=== PATIENT | female | born 1955 | race Caucasian/White ===

== ENCOUNTER 2017-09-30 07:15 | Emergency (ER) | payer MEDICAID, OTHER ==
[~2017-09-30] VITALS: Ht 162.6 cm; Wt 104.3 kg
[2017-09-30 07:15] VITALS: BP_SYST 141
--- NOTE | 2017-09-30 07:16 | NUR ---
Placed in room 8. Placed on site monitor, blood pressure machine and pulse oximeter. To gown for exam. Side rails up. Report given to Mp KOENIG.
--- NOTE | 2017-09-30 07:21 | NUR ---
Pt presenTs to Ed c/o episode of palpitations at approx 0100 this AM. Pt has no acute distress noted.Pt h/o HTN. VSS. Pt denies CP or SOB at this time.
--- NOTE | 2017-09-30 07:25 | NUR ---
ER at bedside examining patient.
--- NOTE | 2017-09-30 07:45 | NUR ---
delivery technician at bedside.
[2017-09-30 08:09] LABS: BASOPHILS # (AUTO) 0.1 K/uL (0.0-0.2); EOSINOPHILS # (AUTO) 0.1 K/uL (0.0-0.4); HEMATOCRIT 43.2 % (36-48); HEMOGLOBIN 14.4 g/dL (12.0-16.0); LYMPHOCYTES # (AUTO) 1.9 K/uL (1.0-5.5); LYMPHOCYTES % (AUTO) 33.6 % (20.5-51.5); MEAN CORPUSCULAR HEMOGLOBIN 29 pg (27-31); MEAN CORPUSCULAR HGB CONC 34 % (32-36); MEAN CORPUSCULAR VOLUME 87 fL (79.0-98.0); MONOCYTES # (AUTO) 0.4 K/uL (0.0-1.0); MONOCYTES % (AUTO) 7.2 % (1.7-9.3); NEUTROPHILS # (AUTO) 3.3 K/uL (1.8-7.7); NEUTROPHILS % (AUTO) 56.2 % (40.0-70.0); PLATELET COUNT (AUTO) 259 K/uL (130-430); RED BLOOD CELL COUNT(AUTO) 4.96 MIL/uL (4.2-6.2); RED CELL DISTRIBUTION WIDTH 12.9 % (9.0-15.0); WHITE BLOOD COUNT (AUTO) 5.8 K/uL (4.8-10.8)
--- NOTE | 2017-09-30 08:15 | NUR ---
Pt resting no acute distress noted.
[2017-09-30 08:30] LABS: CALCIUM 8.7 mg/dL (8.4-11.0); CREATININE 0.74 mg/dL (0.55-1.30); POTASSIUM 4.1 mmol/L (3.5-5.1)
[2017-09-30 08:35] LABS: ALBUMIN 3.5 g/dL (3.4-4.8); TOTAL BILIRUBIN 0.4 mg/dL (0.0-1.0)
[2017-09-30 09:12] VITALS: BP_SYST 131
--- NOTE | 2017-09-30 09:12 | NUR ---
Patient given written and verbal discharge instructions and verbalizes understanding. ER MD discussed with patient the results and treatment provided. Patient in stable condition. ID arm band removed. IV catheter removed intact and dressing applied, no active bleeding. No Rx given. Patient educated on pain management and to follow up with PMD. Pain Scale 0. Opportunity for questions provided and answered. Medication side effect fact sheet provided.
== END 2017-09-30 09:12 | disposition home or self-care (01) ==
LOC: SED 07:15
DX: R07.89 Other chest pain (principal); I10 Essential (primary) hypertension; Z88.2 Allergy status to sulfonamides; Z86.79 Personal history of other diseases of the circulatory system
CPT/HCPCS: 36415; 71045; 80053; 84484; 85025; 99283

== ENCOUNTER 2020-07-31 10:17 | Emergency (ER) | payer MEDICAID, OTHER ==
[~2020-07-31] VITALS: Ht 162.6 cm; Wt 108.9 kg
[2020-07-31] MEDS ORDERED: cefTRIAXone 1 GM IVPB PREMIX 50 ML IV ONE (10:30)
[2020-07-31] MEDS ORDERED: NS 1000 ML IV.SOLN IV ONE (10:30)
[2020-07-31 10:31] VITALS: BP_SYST 142
[2020-07-31 11:45] VITALS: BP_SYST 129
== END 2020-07-31 11:45 | disposition home or self-care (01) ==
LOC: SED 10:17
DX: H43.392 Other vitreous opacities, left eye (principal); I10 Essential (primary) hypertension; Z88.2 Allergy status to sulfonamides
CPT/HCPCS: 99284

== ENCOUNTER 2021-03-23 10:56 | Emergency (ER) | payer MEDICAID, SELFPAY ==
[~2021-03-23] VITALS: Ht 162.6 cm; Wt 108.9 kg
[2021-03-23 11:00] VITALS: BP_SYST 128
--- NOTE | 2021-03-23 11:00 | NUR ---
PT TRIAGED AND PLACED IN WAITING ROOM FOR AVAILABLE BED
--- NOTE | 2021-03-23 11:05 | NUR ---
PT CAME IN FROM HOME, STATES WHILE LEAVING THE HOUSE THIS AM SHE STEPPED INTO A SHALLOW HOLE IN THE [place]. AFTER SHE HAD RIGHT KNEE AND LOWER BACK PAIN, SHARP. NO DEFORMITY NOTED. PT IS AMBULATORY, AAOX4, V/S STABLE
--- NOTE | 2021-03-23 11:10 | NUR ---
ER DR. MCNULTY EXAMINING PT
[2021-03-23] MEDS ORDERED: KETOROLAC TROMETHAMINE 60 MG/2 ML VIAL IM ONE (11:30)
[2021-03-23] MEDS ORDERED: HYDROcodone/ACETAMIN 10-325 MG TAB PO ONE (11:30)
--- NOTE | 2021-03-23 11:35 | NUR ---
Patient transported to radiology via WC, accompanied by STAFF.
[2021-03-23] MEDS ORDERED: IBUP-1969 PO (13:39)
[2021-03-23] MEDS ORDERED: HYDR-3917 PO (13:39)
[2021-03-23 13:50] VITALS: BP_SYST 128
--- NOTE | 2021-03-23 13:50 | NUR ---
PT ELOPED FROM ER
== END 2021-03-23 13:50 | disposition left against medical advice (07) ==
LOC: SED 10:56
DX: S83.91XA Sprain of unspecified site of right knee, initial encounter (principal); S33.5XXA Sprain of ligaments of lumbar spine, initial encounter; W17.2XXA Fall into hole, initial encounter; Y93.89 Activity, other specified; Y92.89 Other specified places as the place of occurrence of the external cause; Y99.8 Other external cause status
CPT/HCPCS: 72100; 73564; 96372; 99284; J1885